=== PATIENT | female | born 1995 | race Caucasian/White ===

== ENCOUNTER → 2018-05-29 | Outpatient (REF) | payer BC | LOC: M SFHCWAGY 14:06 | DX: Z12.4 Encounter for screening for malignant neoplasm of cervix (principal) | CPT/HCPCS: G0123 ==

== ENCOUNTER 2021-03-19 17:01 | Emergency (ER) | payer OTHER, BC ==
[~2021-03-19] VITALS: Ht 175.3 cm; Wt 68.7 kg
[2021-03-19 17:01] VITALS: BP 116/59
[2021-03-19 17:45] LABS: BASO # 0.1 10^3/uL (0.0-0.2); BASO % 1.4 % (0.0-1.0); EOS # 0.1 10^3/uL (0.0-0.5); EOS % 2.5 % (0.0-3.0); HEMATOCRIT 37.6 % (36.0-47.0); HEMOGLOBIN 12.3 g/dl (12.0-15.5); LYMPH # 2.1 10^3/uL (1.5-5.0); LYMPH % 47.4 % (24.0-44.0); MEAN CORPUSCULAR HGB CONC 32.7 g/dl (32.0-36.5); MEAN CORPUSCULAR VOLUME 88.7 fl (80.0-96.0); MONO # 0.3 10^3/uL (0.0-0.8); MONO % 7.7 % (2.0-8.0); NEUTROPHILS # 1.8 10^3/uL (1.5-8.5); PLATELET COUNT, AUTOMATED 217 10^3/uL (150-450); RED BLOOD COUNT 4.24 10^6/uL (4.00-5.40); WHITE BLOOD COUNT 4.4 10^3/uL (4.0-10.0)
[2021-03-19] MEDS ORDERED: EXPOSURE KIT-ADULT 7 DAY SUPPLY PO ONE (18:00)
[2021-03-19] MEDS ORDERED: RALT40TA PO (18:00)
[2021-03-19] MEDS ORDERED: BOOSTRIX/ADACEL VACCINE (DIPHTH/PERTUSS/ACELL/TETANUS) 0.5ML SYR IM ONE (18:00)
[2021-03-19] MEDS ORDERED: EMTR1TAB16 PO (18:00)
[2021-03-19] MEDS ORDERED: RALTEGRAVIR 400 MG TAB (ISENTRESS) PO ONE (18:05)
[2021-03-19] MEDS ORDERED: TRUVADA 200MG/300MG TABLET PO ONE (18:05)
[2021-03-19 18:08] LABS: ALBUMIN 4.1 GM/DL (3.2-5.2); ALT/SGPT 21 U/L (12-78); BILIRUBIN,TOTAL 0.4 MG/DL (0.2-1.0); BLOOD UREA NITROGEN 23 MG/DL (7-18); CALCIUM LEVEL 9.4 MG/DL (8.5-10.1); CARBON DIOXIDE LEVEL 27 MEQ/L (21-32); CHLORIDE LEVEL 106 MEQ/L (98-107); CREATININE FOR GFR 0.94 MG/DL (0.55-1.30); GLOMERULAR FILTRATION RATE > 60.0 (>60); GLUCOSE, FASTING 90 MG/DL (70-100); POTASSIUM SERUM 4.3 MEQ/L (3.5-5.1); SODIUM LEVEL 139 MEQ/L (136-145); TOTAL PROTEIN 7.7 GM/DL (6.4-8.2)
[2021-03-19 18:29] LABS: HEPATITIS B SURFACE ANTIGEN NEGATIVE (NEGATIVE)
[2021-03-19 18:32] LABS: HEPATITIS B SURFACE ANTIBODY NEGATIVE (POSITIVE)
[2021-03-19 19:12] LABS: HEPATITIS C VIRUS ABY INDEX < 0.0 INDEX (<0.8); HIV 1&2 SCREEN CENTAUR NEGATIVE (NEGATIVE)
[2021-03-19 19:48] LABS: HCG, SERUM QUALITATIVE NEGATIVE (NEGATIVE)
[2021-03-20] MEDS ORDERED: RALTEGRAVIR 400 MG TAB (ISENTRESS) PO SCH
[2021-03-20] MEDS ORDERED: TRUVADA 200MG/300MG TABLET PO SCH
== END 2021-03-19 18:42 | disposition home or self-care (01) ==
LOC: M ED 17:01
DX: Z77.21 Contact with and (suspected) exposure to potentially hazardous body fluids (principal)

== ENCOUNTER → 2021-08-25 | Outpatient (REF) | payer OTHER, BC ==
[~2021-08-25] MED LIST: EMTR1TAB16 PO; RALT40TA PO
[2021-08-25 12:48] LABS: APPEARANCE, URINE CLOUDY (CLEAR); BACTERIA, URINE AUTO 1+ (NEGATIVE); BILIRUBIN, URINE AUTO NEGATIVE (NEGATIVE); BLOOD, URINE BLOOD NEGATIVE (NEGATIVE); COLOR, URINE YELLOW (YELLOW); GLUCOSE, URINE (UA) AUTO NEGATIVE (NEGATIVE); KETONE, URINE AUTO TRACE mg/dL (NEGATIVE); LEUKOCYTE ESTERASE, URINE AUTO 3+ (NEGATIVE); MUCUS, URINE LARGE (NEGATIVE); NITRITE, URINE AUTO NEGATIVE (NEGATIVE); PROTEIN, URINE AUTO 2+ mg/dL (NEGATIVE); RBC, URINE AUTO 7 /HPF (0-3); SPECIFIC GRAVITY URINE AUTO 1.034 (1.002-1.035); SQUAMOUS EPITHELIAL CELL UR AU 8 /HPF (0-6); UROBILINOGEN, URINE AUTO 0.2 mg/dL (0.0-2.0); WBC, URINE AUTO 152 /HPF (0-3)
== END ==
LOC: M LAB REF 12:26
PROVIDERS: ATTEND Physician Assistant
DX: R30.0 Dysuria (principal)

== ENCOUNTER → 2021-11-11 | Outpatient (REF) | payer BC ==
[2021-11-12 15:22] LABS: GC DNA AMPLIFICATION NEGATIVE (NEGATIVE)
== END ==
LOC: M PLALAB 16:12
PROVIDERS: ATTEND Advanced Practice Midwife
DX: Z01.419 Encounter for gynecological examination (general) (routine) without abnormal findings (principal); Z12.4 Encounter for screening for malignant neoplasm of cervix

== ENCOUNTER → 2021-11-18 | Outpatient (CLI) | payer BC | LOC: M WHC 16:01 | PROVIDERS: ATTEND Advanced Practice Midwife | DX: N85.4 Malposition of uterus (principal) ==

== ENCOUNTER → 2022-12-22 | Outpatient (REF) | LOC: M LABSMTC 10:43 | PROVIDERS: ATTEND Family Medicine | DX: Z11.52 Encounter for screening for COVID-19 (principal) ==

== ENCOUNTER → 2023-11-10 | Outpatient (REF) | payer BC ==
[2023-11-10 16:44] LABS: APPEARANCE, URINE HAZY (CLEAR); BACTERIA, URINE AUTO 1+ (NEGATIVE); BILIRUBIN, URINE AUTO NEGATIVE (NEGATIVE); BLOOD, URINE BLOOD NEGATIVE (NEGATIVE); COLOR, URINE YELLOW (YELLOW); GLUCOSE, URINE (UA) AUTO NEGATIVE (NEGATIVE); KETONE, URINE AUTO NEGATIVE (NEGATIVE); LEUKOCYTE ESTERASE, URINE AUTO 2+ (NEGATIVE); MUCUS, URINE SMALL (NEGATIVE); NITRITE, URINE AUTO NEGATIVE (NEGATIVE); PROTEIN, URINE AUTO 1+ mg/dL (NEGATIVE); RBC, URINE AUTO 2 /HPF (0-3); SPECIFIC GRAVITY URINE AUTO 1.029 (1.002-1.035); SQUAMOUS EPITHELIAL CELL UR AU 3 /HPF (0-6); WBC, URINE AUTO 49 /HPF (0-3)
== END ==
LOC: M LAB REF 16:19
PROVIDERS: ATTEND Physician Assistant
DX: N39.0 Urinary tract infection, site not specified (principal)

== ENCOUNTER → 2024-10-15 | Outpatient (REF) | LOC: M EMP 12:00 | PROVIDERS: ATTEND Family Medicine | DX: Z11.52 Encounter for screening for COVID-19 (principal) ==

== ENCOUNTER → 2024-11-25 | Outpatient (REF) | payer MEDICAID, OTHER | LOC: M PLALAB 09:21 | PROVIDERS: ATTEND Obstetrics & Gynecology | DX: Z34.80 Encounter for supervision of other normal pregnancy, unspecified trimester (principal) ==

== ENCOUNTER → 2024-11-25 | Outpatient (CLI) | payer MEDICAID, OTHER ==
[2024-11-25 14:03] LABS: HEMATOCRIT 41.2 % (36.0-47.0); HEMOGLOBIN 13.5 g/dl (12.0-15.5); MEAN CORPUSCULAR HEMOGLOBIN 29.2 pg (27.0-33.0); MEAN CORPUSCULAR HGB CONC 32.8 g/dl (32.0-36.5); PLATELET COUNT, AUTOMATED 237 10^3/uL (150-450); RED BLOOD COUNT 4.63 10^6/uL (4.00-5.40); WHITE BLOOD COUNT 5.8 10^3/uL (4.0-10.0)
[2024-11-25 14:53] LABS: Trichomonas vaginalis (AMP) NOT DETECTED (NEGATIVE)
[2024-11-25 15:05] LABS: HIV 1&2 SCREEN NEGATIVE (NEGATIVE)
[2024-11-25 15:13] LABS: HEPATITIS C VIRUS ABY INDEX 0.12 INDEX (<0.8)
[2024-11-25 15:17] LABS: GC DNA AMPLIFICATION NEGATIVE (NEGATIVE)
== END ==
LOC: M PLALAB 09:33
PROVIDERS: ATTEND Obstetrics & Gynecology
DX: Z34.80 Encounter for supervision of other normal pregnancy, unspecified trimester (principal); Z3A.00 Weeks of gestation of pregnancy not specified

== ENCOUNTER → 2024-12-24 | Outpatient (CLI) | payer OTHER | LOC: M PLALAB 09:25 | PROVIDERS: ATTEND Obstetrics & Gynecology | DX: Z34.80 Encounter for supervision of other normal pregnancy, unspecified trimester (principal) ==

== ENCOUNTER → 2024-12-31 | Outpatient (CLI) | payer OTHER | LOC: M WHC 11:58 | PROVIDERS: ATTEND Obstetrics & Gynecology | DX: Z36.89 Encounter for other specified antenatal screening (principal); Z3A.19 19 weeks gestation of pregnancy ==

== ENCOUNTER 2025-02-07 18:07 | Emergency (ER) | payer OTHER ==
[~2025-02-07] VITALS: Ht 177.8 cm; Wt 74.7 kg
[~2025-02-07 18:07] MED LIST changes: -ACET650T3 PO; -LIDO5DIS41 TOP
[2025-02-07] MEDS ORDERED: ACET650T3 PO (19:19)
[2025-02-07] MEDS ORDERED: LIDO5DIS41 TOP (19:20)
[2025-02-07 19:32] LABS: KETONE, URINE AUTO RFX NEGATIVE (NEGATIVE); LEUKOCYTE ESTERASE UR AUTO RFX NEGATIVE (NEGATIVE); NITRITE, URINE AUTO RFX NEGATIVE (NEGATIVE); RBC, URINE AUTO RFX 177 /HPF (0-3); SQUAM EPITHELIAL CELL UR AURFX 1 /HPF (0-6); WBC, URINE AUTO RFX 0 /HPF (0-3)
[2025-02-07 19:41] VITALS: BP 122/73; TEMP 98; O2SAT 99
== END 2025-02-07 19:45 | disposition home or self-care (01) ==
LOC: EDBD 18:07 → M ED 18:07
DX: S06.0X0A Concussion without loss of consciousness, initial encounter (principal); S70.01XA Contusion of right hip, initial encounter; S70.02XA Contusion of left hip, initial encounter; S40.021A Contusion of right upper arm, initial encounter; Y92.9 Unspecified place or not applicable; Y93.9 Activity, unspecified; Y99.9 Unspecified external cause status; V49.40XA Driver injured in collision with unspecified motor vehicles in traffic accident, initial encounter; Z79.1 Long term (current) use of non-steroidal anti-inflammatories (NSAID); Z79.899 Other long term (current) drug therapy

== ENCOUNTER 2025-02-07 19:44 | Outpatient (CLI) | payer OTHER ==
[~2025-02-07] VITALS: Ht 177.8 cm; Wt 75.0 kg
[~2025-02-07 19:44] MED LIST changes: +ACET650T3 PO; +LIDO5DIS41 TOP
[2025-02-07 20:13] VITALS: BP 117/61
[2025-02-07 20:15] LABS: HEMATOCRIT 34.8 % (36.0-47.0); HEMOGLOBIN 11.7 g/dl (12.0-15.5); MEAN CORPUSCULAR HEMOGLOBIN 30.5 pg (27.0-33.0); MEAN CORPUSCULAR HGB CONC 33.6 g/dl (32.0-36.5); MEAN CORPUSCULAR VOLUME 90.6 fl (80.0-96.0); PLATELET COUNT, AUTOMATED 217 10^3/uL (150-450); RED BLOOD COUNT 3.84 10^6/uL (4.00-5.40); WHITE BLOOD COUNT 8.7 10^3/uL (4.0-10.0)
[2025-02-07] MEDS: ACETAMINOPHEN 500 MG TAB PO ONE (20:25)
[2025-02-08 00:01] VITALS: BP 114/58
[2025-02-08] MEDS: ACETAMINOPHEN 500 MG TAB PO ONE (00:37)
[2025-02-08 04:41] VITALS: BP 116/61
== END 2025-02-08 06:40 | disposition home or self-care (01) ==
LOC: M LDO 19:44
PROVIDERS: ATTEND Advanced Practice Midwife
DX: Z04.1 Encounter for examination and observation following transport accident (principal); O26.892 Other specified pregnancy related conditions, second trimester; R51.9 Headache, unspecified; Z3A.24 24 weeks gestation of pregnancy; V48.5XXA Car driver injured in noncollision transport accident in traffic accident, initial encounter; Y92.9 Unspecified place or not applicable; Y93.9 Activity, unspecified; Y99.9 Unspecified external cause status
CPT/HCPCS: 36415; 59025; 76815; 85027; 85384; 85460; G0463

== ENCOUNTER → 2025-02-07 | Outpatient (CLI) | payer OTHER ==
[~2025-02-07] MED LIST changes: +ACET650T3 PO; +LIDO5DIS41 TOP
== END ==
LOC: M WHC 07:09
PROVIDERS: ATTEND Advanced Practice Midwife
DX: Z34.02 Encounter for supervision of normal first pregnancy, second trimester (principal)

== ENCOUNTER → 2025-02-18 | Outpatient (REF) | payer OTHER ==
[2025-02-18 18:25] LABS: APPEARANCE, URINE HAZY (CLEAR); BACTERIA, URINE AUTO NEGATIVE (NEGATIVE); BILIRUBIN, URINE AUTO NEGATIVE (NEGATIVE); BLOOD, URINE BLOOD 1+ (NEGATIVE); COLOR, URINE YELLOW (YELLOW); GLUCOSE, URINE (UA) AUTO NEGATIVE (NEGATIVE); KETONE, URINE AUTO NEGATIVE (NEGATIVE); LEUKOCYTE ESTERASE, URINE AUTO 3+ (NEGATIVE); NITRITE, URINE AUTO NEGATIVE (NEGATIVE); PROTEIN, URINE AUTO NEGATIVE (NEGATIVE); RBC, URINE AUTO 3 /HPF (0-3); SPECIFIC GRAVITY URINE AUTO 1.006 (1.002-1.035); SQUAMOUS EPITHELIAL CELL UR AU 1 /HPF (0-6); UROBILINOGEN, URINE AUTO 0.2 mg/dL (0.0-2.0); WBC, URINE AUTO 64 /HPF (0-3)
== END ==
LOC: M SFHCWAGY 17:10
PROVIDERS: ATTEND Advanced Practice Midwife
DX: R30.0 Dysuria (principal)

== ENCOUNTER → 2025-02-19 | Outpatient (CLI) | payer OTHER ==
[~2025-02-19] MED LIST changes: +LIDO1ADH93 TOP; -LIDO5DIS41 TOP
[2025-02-19 12:10] LABS: HEMATOCRIT 34.4 % (36.0-47.0); HEMOGLOBIN 11.3 g/dl (12.0-15.5); MEAN CORPUSCULAR HEMOGLOBIN 30.3 pg (27.0-33.0); MEAN CORPUSCULAR HGB CONC 32.8 g/dl (32.0-36.5); MEAN CORPUSCULAR VOLUME 92.2 fl (80.0-96.0); PLATELET COUNT, AUTOMATED 222 10^3/uL (150-450); RED BLOOD COUNT 3.73 10^6/uL (4.00-5.40); WHITE BLOOD COUNT 6.6 10^3/uL (4.0-10.0)
[2025-02-19 12:16] LABS: APPEARANCE, URINE CLOUDY (CLEAR); BACTERIA, URINE AUTO 1+ (NEGATIVE); BILIRUBIN, URINE AUTO NEGATIVE (NEGATIVE); BLOOD, URINE BLOOD NEGATIVE (NEGATIVE); COLOR, URINE YELLOW (YELLOW); GLUCOSE, URINE (UA) AUTO 1+ mg/dL (NEGATIVE); KETONE, URINE AUTO NEGATIVE (NEGATIVE); LEUKOCYTE ESTERASE, URINE AUTO 2+ (NEGATIVE); MUCUS, URINE SMALL (NEGATIVE); NITRITE, URINE AUTO NEGATIVE (NEGATIVE); PROTEIN, URINE AUTO 1+ mg/dL (NEGATIVE); RBC, URINE AUTO 1 /HPF (0-3); SPECIFIC GRAVITY URINE AUTO 1.017 (1.002-1.035); SQUAMOUS EPITHELIAL CELL UR AU 13 /HPF (0-6); UROBILINOGEN, URINE AUTO 0.2 mg/dL (0.0-2.0); WBC, URINE AUTO 24 /HPF (0-3)
[2025-02-19 12:50] LABS: GLUCOSE CHALLENGE TEST 1 HOUR 66 MG/DL (LESS THAN 140)
[2025-02-19 13:20] LABS: HIV 1&2 SCREEN NEGATIVE (NEGATIVE)
[2025-02-19 13:27] LABS: HEPATITIS C VIRUS ABY INDEX 0.06 INDEX (<0.8)
[2025-02-19 13:44] LABS: GC DNA AMPLIFICATION NEGATIVE (NEGATIVE)
== END ==
LOC: M PLALAB 08:36
PROVIDERS: ATTEND Advanced Practice Midwife
DX: Z34.02 Encounter for supervision of normal first pregnancy, second trimester (principal)

== ENCOUNTER → 2025-04-22 | Outpatient (REF) | payer OTHER, MEDICAID | LOC: M SFHCWAGY 12:51 | PROVIDERS: ATTEND Obstetrics & Gynecology | DX: R82.90 Unspecified abnormal findings in urine (principal) ==

== ENCOUNTER → 2025-04-30 | Outpatient (REF) | payer OTHER, MEDICAID | LOC: M SFHCWAGY 13:06 | PROVIDERS: ATTEND Obstetrics & Gynecology | DX: Z36.89 Encounter for other specified antenatal screening (principal); Z3A.36 36 weeks gestation of pregnancy ==

== ENCOUNTER → 2025-05-12 | Outpatient (RCR) ==
[~2025-05-12] MED LIST changes: +ACET-897 PO; +PRENTAB9 PO; +TUMS500C PO
== END ==
LOC: M EMPSKH 04-13 06:25
PROVIDERS: ATTEND Family Medicine
DX: Z20.828 Contact with and (suspected) exposure to other viral communicable diseases (principal)

== ENCOUNTER 2025-06-03 14:36 | Inpatient (IN) | payer MEDICAID, OTHER ==
[~2025-06-03] VITALS: Ht 177.8 cm; Wt 88.0 kg
[~2025-06-03 14:36] MED LIST changes: -ACET-897 PO; -PRENTAB9 PO; -TUMS500C PO
[2025-06-03] MEDS ORDERED: ACET-897 PO (15:01)
[2025-06-03] MEDS ORDERED: TUMS500C PO (15:01)
[2025-06-03] MEDS ORDERED: PRENTAB9 PO (15:02)
[2025-06-03 15:04] VITALS: BP 129/72; O2SAT 98
[2025-06-03] MEDS ORDERED: HOME MED LIST COMPLETE! XX SCH (15:05)
[2025-06-03] MEDS ORDERED: TRANEXAMIC ACID INJection 1,000 MG in NS 100 ML IV PRN (15:35)
[2025-06-03] MEDS ORDERED: LIDOCAINE 1% MDV 20 ML VIAL INFIL PRN (15:35)
[2025-06-03] MEDS ORDERED: METHYLERGONOVINE MALEATE 0.2 MG/ML 1 ML VIAL IM PRN (15:35)
[2025-06-03 15:47] LABS: PLATELET COUNT, AUTOMATED 210 10^3/uL (150-450)
[2025-06-03 15:53] VITALS: BP 125/71
[2025-06-03] MEDS: miSOPROStol 50 MCG 1/2 TABLET PO SCH (15:59)
[2025-06-03 16:42] LABS: HIV 1&2 SCREEN NEGATIVE (NEGATIVE)
[2025-06-03 16:50] LABS: HEPATITIS C VIRUS ABY INDEX < 0.02 INDEX (<0.8)
[2025-06-03 17:11] VITALS: BP 128/67
[2025-06-03 18:09] VITALS: O2SAT 98
[2025-06-03 18:10] VITALS: BP 128/63
[2025-06-03 21:03] VITALS: BP 135/72
[2025-06-04] VITALS (20 sets, daily range): BP systolic 109–153; BP diastolic 57–90; O2SAT 97–99
[2025-06-04] MEDS ORDERED: EPIDURAL/PCA KEYS XX PRN (01:15)
[2025-06-04] MEDS ORDERED: diphenhydrAMINE 50 MG/ML VIAL IV PRN (01:15)
[2025-06-04] MEDS ORDERED: LR 500 ML IV PRN (01:15)
[2025-06-04] MEDS ORDERED: NALOXONE INJ 0.4 MG/1 ML VIAL IV PRN (01:15)
[2025-06-04] MEDS: LR 1,000 ML IV SCH (01:53)
[2025-06-04] MEDS: FENTANYL/ROPIVACAINE/NACL BAG 100 ML EPIDURAL SCH (01:53)
[2025-06-04] MEDS: ONDANSETRON 4MG 2ML VIAL IV PRN (02:11)
[2025-06-04] MEDS ORDERED: MOM 30 ML SUSPENSION UDC PO PRN (03:55)
[2025-06-04] MEDS ORDERED: IBUPROFEN 600 MG TAB PO PRN (03:55)
[2025-06-04] MEDS ORDERED: RHOGAM 300MCG (1500IU) INJ IM SCH (03:55)
[2025-06-04] MEDS ORDERED: METHYLERGONOVINE MALEATE 0.2 MG TAB PO PRN (03:55)
[2025-06-04] MEDS ORDERED: CALCIUM CARBONATE 500 MG CHEW U/D PO PRN (03:55)
[2025-06-04] MEDS: OXYTOCIN DRIP 30 UNITS in IV 1 EA IV SCH ×2 (03:55→07:35)
[2025-06-04] MEDS ORDERED: ACETAMINOPHEN 500 MG TAB PO PRN (03:55)
[2025-06-04] MEDS ORDERED: ACETAMINOPHEN 325 MG TAB PO PRN (03:55)
[2025-06-04] MEDS: IBUPROFEN 800 MG TAB PO PRN (06:23)
[2025-06-04] MEDS: DIBUCAINE 1% OINTMENT 30 GM TOP PRN (06:24)
[2025-06-04] MEDS: ANUSOL HC CREAM 30 GM TOP PRN (06:24)
[2025-06-04] MEDS ORDERED: HOME MED LIST COMPLETE! XX SCH (07:45)
[2025-06-04] MEDS: PRENATAL VITAMINS CHEWABLE TABLET PO SCH (08:46)
[2025-06-04] MEDS: DOCUSATE SODIUM 100 MG CAPSULE PO PRN (09:48)
[2025-06-05 05:43] VITALS: BP 107/52; O2SAT 97
[2025-06-06] MEDS ORDERED: MEASLES,MUMPS,RUBELLA VACCINE INJ (MMR-II) SC.IMMUN ONE (09:00)
== END 2025-06-05 18:50 | disposition home or self-care (01) | DRG 560 ==
LOC: M LDI 14:36 → M OBS 06-04 06:09
PROVIDERS: ADMIT Obstetrics & Gynecology; ATTEND Obstetrics & Gynecology
PROC: 3E033VJ Introduction of Other Hormone into Peripheral Vein, Percutaneous Approach (ICD-10-PCS; 2025-06-03)
PROC: 10E0XZZ Delivery of Products of Conception, External Approach (ICD-10-PCS; principal; 2025-06-04)
PROC: 0HQ9XZZ Repair Perineum Skin, External Approach (ICD-10-PCS; 2025-06-04)
DX: O48.0 Post-term pregnancy (principal); Z37.0 Single live birth; Z3A.41 41 weeks gestation of pregnancy; O70.0 First degree perineal laceration during delivery